=== PATIENT | female | born 1985 | race Hispanic/Latino ===

== ENCOUNTER 2019-01-04 00:44 | Inpatient (IN) | payer MEDICAID | END 2019-01-05 11:40 | disposition home or self-care (01) | LOC: LDH 00:44 → WSH 03:48 | PROC: 10E0XZZ Delivery of Products of Conception, External Approach (ICD-10-PCS; principal; ~2019-01-04) | DX: O80 Encounter for full-term uncomplicated delivery (principal); Z37.0 Single live birth ==